=== PATIENT | female | born 2000 | race Caucasian/White ===

== ENCOUNTER 2018-08-29 19:27 | Emergency (ER) | payer SELFPAY ==
--- NOTE | 2018-08-29 19:38 | ER Document Report ---
ED Medical Screen (RME) - General Stated Complaint: MASS IN VAGINA Time Seen by Provider: 08/29/18 19:35 Mode of Arrival: Ambulatory Information source: Patient Notes: Patient is an otherwise healthy [id number]wr female who presents with chief complaint of a lump on her vagina. She also states that she has been having no period for at least 3 months now. She reports intermittent low abdominal pain and cramping. She also reports urinary frequency without dysuria. Patient denies any fevers.
[2018-08-29 19:42] VITALS: BP 122/67
[2018-08-29 20:39] LABS: APPEARANCE,URINE CLEAR; BILIRUBIN,URINE NEGATIVE (NEGATIVE); COLOR,URINE YELLOW; GLUCOSE, URINE NEGATIVE (NEGATIVE); KETONES,URINE NEGATIVE (NEGATIVE); LEUKOCYTE ESTERASE,URINE NEGATIVE (NEGATIVE); NITRITE,URINE NEGATIVE (NEGATIVE); PROTEIN,URINE NEGATIVE (NEGATIVE); URINE SPECIFIC GRAVITY 1.013; UROBILINOGEN,URINE NEGATIVE mg/dL (<2.0)
== END 2018-08-29 23:30 | disposition left against medical advice (07) ==
LOC: ER 19:27
DX: N89.9 Noninflammatory disorder of vagina, unspecified (principal); R35.0 Frequency of micturition; R10.30 Lower abdominal pain, unspecified; Z53.20 Procedure and treatment not carried out because of patient's decision for unspecified reasons
CPT/HCPCS: 81001; 81025; 99281

== ENCOUNTER 2019-07-04 00:15 | Emergency (ER) | payer OTHER ==
[2019-07-04 00:22] VITALS: BP 126/72
[2019-07-04 01:03] LABS: ABSOLUTE BASOPHILS # (AUTO) 0.1 10^3/uL (0.0-0.2); ABSOLUTE LYMPHOCYTES (AUTO) 1.1 10^3/uL (0.5-4.7); ABSOLUTE MONOCYTES (AUTO) 0.7 10^3/uL (0.1-1.4); ABSOLUTE NEUT (AUTO) 10.9 10^3/uL (1.7-8.2); BASOPHILS % (AUTO) 0.7 % (0-2); EOSINOPHILS % (AUTO) 0.4 % (0-6); HEMATOCRIT 41.5 % (36.0-47.0); HEMOGLOBIN 14.4 g/dL (12.0-15.5); LYMPHOCYTES % (AUTO) 8.4 % (13-45); MEAN CORPUSCULAR HEMOGLOBIN 29.8 pg (27.0-33.4); MEAN CORPUSCULAR HGB CONC 34.8 g/dL (32.0-36.0); MEAN CORPUSCULAR VOLUME 86 fl (80-97); MONOCYTES % (AUTO) 5.1 % (3-13); PLATELET COUNT 187 10^3/uL (150-450); RED BLOOD COUNT 4.84 10^6/uL (3.72-5.28); RED CELL DISTRIBUTION WIDTH 12.2 % (11.5-14.0); SEGMENTED NEUTROPHILS % (AUTO) 85.4 % (42-78); TOTAL CELLS COUNTED % (AUTO) 100 %; WHITE BLOOD COUNT 12.7 10^3/uL (4.0-10.5)
[2019-07-04 01:22] LABS: ALBUMIN 4.9 g/dL (3.5-5.0); ALKALINE PHOSPHATASE 68 U/L (38-126); ANION GAP 11 (5-19); ASPARTATE AMINO TRANSFERASE 21 U/L (14-36); BILIRUBIN,TOTAL 0.7 mg/dL (0.2-1.3); BLOOD UREA NITROGEN 22 mg/dL (7-20); CALCIUM 9.5 mg/dL (8.4-10.2); CARBON DIOXIDE 23 mmol/L (22-30); CHLORIDE 108 mmol/L (98-107); GLUCOSE 104 mg/dL (75-110); TOTAL PROTEIN 7.6 g/dL (6.3-8.2)
[2019-07-04 01:32] LABS: APPEARANCE,URINE SLIGHTLY-CLOUDY; BILIRUBIN,URINE NEGATIVE (NEGATIVE); COLOR,URINE YELLOW; GLUCOSE, URINE NEGATIVE (NEGATIVE); KETONES,URINE 20 mg/dL (NEGATIVE); LEUKOCYTE ESTERASE,URINE NEGATIVE (NEGATIVE); NITRITE,URINE NEGATIVE (NEGATIVE); PROTEIN,URINE 100 mg/dL (NEGATIVE); URINE SPECIFIC GRAVITY 1.033; UROBILINOGEN,URINE NEGATIVE mg/dL (<2.0)
[2019-07-04] MEDS ORDERED: ONDANSETRON 4 MG TAB.RAPDIS PO ONE (02:20)
[2019-07-04] MEDS ORDERED: NORMAL SALINE 1000 ML 1,000 ML IV ONE (04:45)
[2019-07-04] MEDS ORDERED: PROMETHAZINE HCL INJ 25 MG/1 ML VIAL IV ONE (04:45)
[2019-07-04] MEDS ORDERED: ONDANSETRON HCL INJ/PF 4 MG/2 ML SDV IV ONE (04:46)
--- NOTE | 2019-07-04 04:55 | ER Document Report ---
Entered by CAESAR HAMEED SCRIBE 07/04/19 0436 Acting as scribe for:SOCORRO LUNA IV, MD ED GI/ - General Chief Complaint: Nausea/Vomiting/Diarrhea Stated Complaint: VOMITING,ABDOMINAL PAIN Time Seen by Provider: 07/04/19 04:32 Mode of Arrival: Ambulatory Information source: Patient Notes: This 19 year old female patient presents to the ED today with complaints of severe nausea, vomiting, and diarrhea that began around 7:00PM last night after eating at [employer] at 1:00PM. Patient states that she ate snow crab at [employer] and that it tasted funny. Patient states that later that evening, her symptoms developed along with abdominal cramping. Patient was administered zofran in the ED, but patient states that it provided little to no relief. Patient notes that her also ate at [employer], but doesn't present with any symptoms. - Related Data Allergies/Adverse Reactions: No Known Allergies Allergy (Verified 07/04/19 00:33) Past Medical History - General Information source: Patient - Social History Smoking Status: Never Smoker Cigarette use (# per day): No Chew tobacco use (# tins/day): No Smoking Education Provided: No Lives with: Spouse/Significant other Family History: Reviewed & Not Pertinent Patient has suicidal ideation: No Patient has homicidal ideation: No Review of Systems - Review of Systems Constitutional: No symptoms reported EENT: No symptoms reported Cardiovascular: No symptoms reported Respiratory: No symptoms reported Gastrointestinal: See HPI, Abdominal pain, Diarrhea, Nausea, Vomiting Genitourinary: No symptoms reported Female Genitourinary: No symptoms reported Musculoskeletal: No symptoms reported Skin: No symptoms reported Hematologic/Lymphatic: No symptoms reported Neurological/Psychological: No symptoms reported -: Yes All other systems reviewed and negative Physical Exam - Vital signs Vitals: Temp Pulse Resp BP Pulse Ox 98.0 F 110 H 20 126/72 H 99 07/04/19 00:21 07/04/19 00:21 07/04/19 00:21 07/04/19 00:21 07/04/19 00:21 - General General appearance: Alert - HEENT Head: Normocephalic, Atraumatic Eyes: Normal Pupils: PERRL - Respiratory Respiratory status: No respiratory distress Chest status: Nontender Breath sounds: Normal Chest palpation: Normal - Cardiovascular Rhythm: Regular Heart sounds: Normal auscultation Murmur: No - Abdominal Inspection: Normal Distension: No distension Bowel sounds: Normal Tenderness: Nontender Organomegaly: No organomegaly - Back Back: Normal, Nontender - Extremities General upper extremity: Normal inspection General lower extremity: Normal inspection - Neurological Neuro grossly intact: Yes - Psychological Associated symptoms: Normal affect, Normal mood - Skin Skin Temperature: Warm Skin Moisture: Dry Skin Color: Normal Course - Vital Signs Vital signs: Temp Pulse Resp BP Pulse Ox 98.0 F 110 H 20 126/72 H 99 07/04/19 00:21 07/04/19 00:21 07/04/19 00:21 07/04/19 00:21 07/04/19 00:21 - Laboratory Result Diagrams: 07/04/19 00:48 07/04/19 00:48 Laboratory results interpreted by me: 07/04/19 07/04/19 07/04/19 00:48 00:48 00:48 WBC 12.7 H Lymph % (Auto) 8.4 L Absolute Neuts (auto) 10.9 H Seg Neutrophils % 85.4 H Chloride 108 H BUN 22 H Urine Protein 100 H Urine Ketones 20 H Discharge - Discharge Clinical Impression: Nausea vomiting and diarrhea Condition: Good Disposition: HOME, SELF-CARE Instructions: Antinausea Medication ([facility]) Additional Instructions: Return to the Emergency Department without delay if any worse. HOME CARE INSTRUCTIONS & INFORMATION: Thank you for choosing us for your medical needs. We hope you're satisfied with the care you received. After you leave, you must properly care for your problem and, at the same time, observe its progress. Any condition can change. Some illnesses can change rapidly over hours or days. If your condition worsens, return to the Emergency Department or see your physician promptly. ABOUT YOUR X-RAYS AND EKG'S: If you had an EKG or X-rays taken, they have been read by the Emergency Physician. The X-rays and EKG's will also be read by a Radiologist or Bundling Machine Operator within 24 hours. If discrepancies are noted, you will be notified by telephone. Please be certain the ED has a correct telephone number & address where you can be reached. Also, realize that some fractures or abnormalities do not show up on initial X-rays. If your symptoms continue, see your physician. ABOUT YOUR LABORATORY TEST: If you had laboratory tests, the results have been reviewed by the Emergency Physician. Some test results (for example cultures) may not be available for several days. You will be contacted if any test result shows you need additional treatment. Please be certain the ED has a correct telephone number and address where you can be reached. ABOUT YOUR MEDICATIONS: You will receive instructions on how to take your medicine on the prescription label you receive. Additional information may be provided by the Pharmacy. If you have questions afterwards, call the ED for clarification or further instructions. Some prescribed medications may cause drowsiness. Do not perform tasks such as driving a car or operating machinery without consulting your Pharmacist. If you feel you need a refill of pain medication, your condition will need re-evaluation. Please do not call for a refill of any medication. ABOUT YOUR SIGNATURE: Signature of this document acknowledges to followin. Understanding that you received emergency treatment and that you may be released before al medical problems are known or treated. Please be certain the ED has a correct phone number & address where you can be reached. 2. Acknowledgement that you will arrange for follow-up care as recommended. 3. Authorization for the Emergency Physician to provide information to your follow-up Physician in order to maximize your care. AT ANY TIME, IF YOUR SYMPTOMS CHANGE SIGNIFICANTLY OR WORSEN OR YOU DEVELOP NEW SYMPTOMS, RETURN TO THE EMERGENCY DEPARTMENT IMMEDIATELY FOR RE-EVALUATION. OUR GOAL IS TO PROVIDE EXCELLENT MEDICAL CARE! WE HOPE THAT WE HAVE MET YOUR EXPECTATIONS DURING YOUR EMERGENCY DEPARTMENT VISIT AND THAT YOU FEEL YOU HAVE RECEIVED EXCELLENT CARE! Prescriptions: Ondansetron [Zofran Odt 4 mg Tablet] 2 tab PO Q48HP PRN #20 tab.rapdis PRN Reason: For Nausea/Vomiting I personally performed the services described in the documentation, reviewed and edited the documentation which was dictated to the scribe in my presence, and it accurately records my words and actions.
== END 2019-07-04 06:22 | disposition home or self-care (01) ==
LOC: ER 00:15
DX: R11.2 Nausea with vomiting, unspecified (principal); R19.7 Diarrhea, unspecified; R10.9 Unspecified abdominal pain
CPT/HCPCS: 99284; 96361; 96374; 96375; 36415; 85025; 80053; 81001; S0119; J2550; J2405; J7030

== ENCOUNTER → 2020-01-14 | Outpatient (CLI) | payer OTHER ==
--- NOTE | 2020-01-14 13:59 | RADIOLOGY REPORT (SQ) ---
EXAM DESCRIPTION: U/S ABDOMEN LIMITED W/O DOP IMAGES COMPLETED DATE/TIME: 01/14/2020 11:01 am REASON FOR STUDY: RUQ PAIN (R10.11) R10.11 RIGHT UPPER QUADRANT PAIN Z34.82 ENCOUNTER FOR SUPRVSN OF NORMAL , SECOND TRI COMPARISON: None. TECHNIQUE: Dynamic and static grayscale images acquired of the abdomen and recorded on PACS. Additio nal selected color Doppler and spectral images recorded. LIMITATIONS: None. FINDINGS: PANCREAS: No masses. Visualized pancreatic duct normal caliber. LIVER: No masses. Echotexture normal. LIVER VASCULATURE: Normal directional flow of the main portal vein and hepatic veins. GALLBLADDER: No stones. Normal wall thickness. No pericholecystic fluid. ULTRASOUND-DETECTED SAAB'S SIGN: Negative. INTRAHEPATIC DUCTS AND COMMON DUCT: CBD and intrahepatic ducts normal caliber. No filling defects. INFERIOR VENA CAVA: Normal flow. AORTA: Normal as visualized. RIGHT KIDNEY: Normal size. Mildly dilated renal pelvis is within expected normative values for gest ational age. Normal echogenicity. No solid or suspicious masses. No calcifications. PERITONEAL AND RIGHT PLEURAL SPACE: No ascites or effusions. OTHER: There is a single live intrauterine gestation with heart motion documented on M-mode son ography of 144 beats per minute. IMPRESSION: Normal right upper quadrant ultrasound in the setting of a single live intrauterine gest ation. TECHNICAL DOCUMENTATION: JOB ID: [id number] 2010 [employer]- All Rights Reserved Reading location - IP/workstation name: [email or web address]
== END ==
LOC: RAD 09:49
PROVIDERS: ATTEND Obstetrics & Gynecology Gynecology
DX: O26.892 Other specified pregnancy related conditions, second trimester (principal); R10.11 Right upper quadrant pain
CPT/HCPCS: 76705

== ENCOUNTER 2020-02-27 21:04 | Outpatient (CLI) | payer OTHER ==
[2020-02-27 21:47] LABS: APPEARANCE,URINE CLEAR; BILIRUBIN,URINE NEGATIVE (NEGATIVE); COLOR,URINE STRAW; GLUCOSE, URINE NEGATIVE (NEGATIVE); KETONES,URINE NEGATIVE (NEGATIVE); LEUKOCYTE ESTERASE,URINE NEGATIVE (NEGATIVE); NITRITE,URINE NEGATIVE (NEGATIVE); PROTEIN,URINE NEGATIVE (NEGATIVE); URINE SPECIFIC GRAVITY 1.005; UROBILINOGEN,URINE NEGATIVE mg/dL (<2.0)
[2020-02-27 22:04] LABS: BACTERIA (WET MOUNT) 4+ BACTERIA SEEN; EPITHELIALS (WET MOUNT) 4+ EPITHELIALS SEEN; RBCS (WET MOUNT) FEW RBCS SEEN; T.VAGINALIS (WET MOUNT) NO TRICHOMONAS SEEN; WBCS (WET MOUNT) 3+ WBCS SEEN; YEAST (WET MOUNT) BUDDING YEAST SEEN
[2020-02-27 22:09] LABS: URINE AMPHETAMINES SCREEN NEGATIVE; URINE BARBITURATES SCREEN NEGATIVE; URINE BENZODIAZEPINES SCREEN NEGATIVE; URINE COCAINE SCREEN NEGATIVE; URINE MARIJUANA (THC) SCREEN NEGATIVE; URINE METHADONE SCREEN NEGATIVE; URINE PHENCYCLIDINE SCREEN NEGATIVE
--- NOTE | 2020-02-27 22:43 | RADIOLOGY REPORT (SQ) ---
EXAM DESCRIPTION: US LIMITED COMPLETED DATE/TME: 02/27/2020 21:33 CLINICAL HISTORY: 19 years, Female, cervical length 24+2 vaginal pain COMPARISON: None. TECHNIQUE: Limited OB ultrasound LIMITATIONS: None. FINDINGS: Single, live intrauterine gestation in the cephalic presentation. Cervical length 2.7 cm. Amniotic fluid index 11.5 cm. Heart tones obtained 132 bpm. The placenta is posterior in location with a grade 1 echotexture and no evidence for previa. Current ultrasound age is 23 weeks 6 days Ratios: HC to a.c.: 1.10 FL to BPD: 79.4 FL to HC: 20.3 FL to a.c.: 22.3. A detailed anatomic assessment was not performed at this time IMPRESSION: Single, live IUP as above. Continued nonemergent follow-up recommended copyright 2010 [employer]- All Rights Reserved
[2020-02-27 23:32] LABS: CHLAM PCR NOT DETECTED (NOT DETECT)
== END 2020-02-28 00:08 | disposition home or self-care (01) ==
LOC: LC 21:04
PROVIDERS: ATTEND Obstetrics & Gynecology
DX: O47.02 False labor before 37 completed weeks of gestation, second trimester (principal); Z3A.24 24 weeks gestation of pregnancy
CPT/HCPCS: 76815; 80307; 81001; 87210; 87491; 87591

== ENCOUNTER 2020-06-15 14:11 | Inpatient (IN) | payer OTHER ==
[2020-06-15] MEDS ORDERED: RINGERS SOLUTION,LACTATED 1,000 ML IV ONE (14:22)
[2020-06-15] MEDS ORDERED: RINGERS SOLUTION,LACTATED 1,000 ML IV PRN (14:22)
--- NOTE | 2020-06-15 14:28 | Admission Physical ---
Datetime Report Generated by CPN: 06/15/2020 14:28 CURRENT ADMISSION Hx Assessment: The History has been Reviewed and is Current Chief Complaint: Uterine Contractions Chief Complaint Other: @ 39.6 wks EGA admitted in active labor from the office Contractions Q 5 min and cervix 4-5/80/-1 on check there by Radha LUONG Admit Impression : Term, Intrauterine ; Active Labor Admit Plan: Admit to Unit; Initiate Labor Protocol ALLERGIES Medication Allergies: No Medication Allergies: No Known Allergies (02/27/2020) Latex: No Latex Allergies OBSTETRICAL HISTORY EDC: 06/16/2020 00:00 : 2 Para: 1 Term: 1 : 0 SAB: 0 IAB: 0 Ectopic: 0 Livin Cesareans: 0 VBACs: 0 Multiple Births: 0 Obstetrical History Comments: G1: 2018, 7lbs 2 oz vag male G2: current MEDICAL HISTORY Medical History Comments: anemia, childbirth PHYSICAL EXAM General: Normal HEENT: Normal Neurologic: Normal Thyroid: Normal Heart: Normal Lungs: Normal Breast: Normal Back: Normal Abdomen: Normal Genitourinary Exam: Normal Extremities: Normal DTRs: Normal Pelvic Type: Adequate Vital Signs: Reviewed; Within Normal Limits VAGINAL EXAM Dilatation: 5 Effacement: 80 Station: -1 Contraction Comments: Q 5 minutes MEMBRANES Membranes: Intact FETUS A EGA: 39.6 Monitoring: External US FHR- Baseline: 135 Variability: Moderate 6-25bpm Accelerations: 15X15 Decelerations: None FHR Category: Category I Admit Comment: at 39.6 wks EGA in active labor -Admit to LDR -NPO and IVFs: LR at 125 cc/hr after 1 liter bolus LR -CEFM and toco -GBS negative -hx of one prior , anticipate INFORMED CONSENT Informed Consent Obtained: Vaginal Delivery; Section Delivery; Risks, Benefits and Alternatives Discussed Signature: with User ID: Luis Angel : with User ID: Luis Angel
[2020-06-15] MEDS ORDERED: OXYTOCIN 10 UNIT/ML VIAL ONE (14:33)
[2020-06-15] MEDS ORDERED: MISOPROSTOL 0.2 MG TABLET ONE (14:33)
[2020-06-15] MEDS ORDERED: LIDOCAINE 1% INJ-PF (10 MG/ML) 30 ML SDV ONE (14:33)
[2020-06-15] MEDS ORDERED: OXYTOCIN/0.9 % SODIUM CHLORIDE 30 UNIT/500 ML RTUINJ ONE (14:33)
[2020-06-15 15:14] LABS: ABSOLUTE BASOPHILS # (AUTO) 0.1 10^3/uL (0.0-0.2); ABSOLUTE LYMPHOCYTES (AUTO) 1.6 10^3/uL (0.5-4.7); ABSOLUTE MONOCYTES (AUTO) 0.8 10^3/uL (0.1-1.4); ABSOLUTE NEUT (AUTO) 9.5 10^3/uL (1.7-8.2); BASOPHILS % (AUTO) 0.7 % (0-2); EOSINOPHILS % (AUTO) 0.1 % (0-6); HEMATOCRIT 34.8 % (36.0-47.0); HEMOGLOBIN 11.8 g/dL (12.0-15.5); LYMPHOCYTES % (AUTO) 13.6 % (13-45); MEAN CORPUSCULAR HEMOGLOBIN 28.3 pg (27.0-33.4); MEAN CORPUSCULAR VOLUME 83 fl (80-97); MONOCYTES % (AUTO) 6.4 % (3-13); PLATELET COUNT 129 10^3/uL (150-450); RED BLOOD COUNT 4.19 10^6/uL (3.72-5.28); RED CELL DISTRIBUTION WIDTH 15.3 % (11.5-14.0); SEGMENTED NEUTROPHILS % (AUTO) 79.2 % (42-78); TOTAL CELLS COUNTED % (AUTO) 100 %
[2020-06-15 15:45] LABS: APPEARANCE,URINE CLEAR; BILIRUBIN,URINE NEGATIVE (NEGATIVE); COLOR,URINE YELLOW; GLUCOSE, URINE NEGATIVE (NEGATIVE); KETONES,URINE NEGATIVE (NEGATIVE); LEUKOCYTE ESTERASE,URINE NEGATIVE (NEGATIVE); NITRITE,URINE NEGATIVE (NEGATIVE); PROTEIN,URINE NEGATIVE (NEGATIVE); URINE SPECIFIC GRAVITY 1.017; UROBILINOGEN,URINE NEGATIVE mg/dL (<2.0)
[2020-06-15 17:22] LABS: URINE AMPHETAMINES SCREEN NEGATIVE; URINE BARBITURATES SCREEN NEGATIVE; URINE BENZODIAZEPINES SCREEN NEGATIVE; URINE COCAINE SCREEN NEGATIVE; URINE MARIJUANA (THC) SCREEN NEGATIVE; URINE METHADONE SCREEN NEGATIVE; URINE PHENCYCLIDINE SCREEN NEGATIVE
[2020-06-15] MEDS ORDERED: FENTANYL/BUPIVACAINE/NS/PF 0 MCG/0 ML RTUINJ EPI ONE (19:50)
[2020-06-15] MEDS ORDERED: ROPIVACAINE HCL 0.2% INJ/PF (2 MG/ML) 20 ML SDV ONE (19:50)
[2020-06-15] MEDS ORDERED: EPHEDRINE SULFATE INJ 50 MG/1 ML AMPULE ONE (19:50)
[2020-06-15] MEDS ORDERED: BENZOCAINE/MENTHOL AEROSOL SPRAY 56 ML TOP PRN (20:37)
[2020-06-15] MEDS ORDERED: MAG HYDROX/AL HYDROX/SIMETH SUSP 30 ML UDCUP PO PRN (20:37)
[2020-06-15] MEDS ORDERED: ACETAMINOPHEN 325 MG TABLET PO PRN (20:37)
[2020-06-15] MEDS ORDERED: DIBUCAINE 1% OINTMENT 28 GM TP PRN (20:37)
[2020-06-15] MEDS ORDERED: MEASLES,MUMPS&RUBELLA VACC/PF 0.5 ML VIAL SUBCUT PRN (20:37)
[2020-06-15] MEDS ORDERED: FAMOTIDINE 20 MG TABLET PO PRN (20:37)
[2020-06-15] MEDS ORDERED: VARICELLA VACC/PF (1350 UNIT/0.5 ML) 0.5 ML VIAL SUBCUT PRN (20:37)
[2020-06-15] MEDS ORDERED: GLYCERIN/WITCH HAZEL LEAF 1 EACH MED..WIPE TP PRN (20:37)
[2020-06-15] MEDS ORDERED: ACETAMINOPHEN 650 MG SUPP.RECT PR PRN (20:37)
[2020-06-15] MEDS ORDERED: DIPH/PERTUSS(ACELL)/TETANUS VAC/PF 0.5 ML SYR (>=10YO) IM PRN (20:37)
[2020-06-15] MEDS ORDERED: OXYTOCIN/0.9 % SODIUM CHLORIDE 30 UNIT/500 ML RTUINJ IV PRN (20:37)
[2020-06-15] MEDS ORDERED: ZOLPIDEM TARTRATE 5 MG TABLET PO PRN (20:37)
[2020-06-15] MEDS ORDERED: DIPHENHYDRAMINE HCL 25 MG CAPSULE PO PRN (20:37)
[2020-06-15] MEDS ORDERED: ACETAMINOPHEN WITH CODEINE #3 TABLET PO PRN ×2 (20:37)
[2020-06-15] MEDS ORDERED: MAGNESIUM HYDROXIDE SUSP 30 ML UDCUP PO PRN (20:37)
[2020-06-15] MEDS ORDERED: PSEUDOEPHEDRINE HCL 30 MG TABLET PO PRN (20:37)
[2020-06-15] MEDS ORDERED: IBUPROFEN 800 MG TABLET ONE (20:51)
[2020-06-15] MEDS ORDERED: METHYLERGONOVINE MALEATE 0.2 MG TABLET ONE (22:22)
[2020-06-15] MEDS: IBUPROFEN 800 MG TABLET PO SCH (22:24)
--- NOTE | 2020-06-15 22:38 | Birth Certificate Data ---
Cert Data Datetime Report Generated by CPN: 06/15/2020 22:37 CERTIFICATE DATA Delivery Provider: Magnolia Blanco MD (02/27/2020 21:23:Magnolia Blanco MD) 47a. Care: Yes (02/27/2020 21:23:Steph Tolentino RN) 47b. Date of First Visit: 12/21/2019 00:00 (02/27/2020 21:23:Steph Tolentino RN) 47c. Date of Last Visit: 06/15/2020 00:00 (02/27/2020 21:23:Steph Tolentino RN) 47d. Number of Visits: 11 (02/27/2020 21:23:Steph Tolentino RN) 48a. Number of Prev Live Births: 1 (02/27/2020 21:23:Steph Tolentino RN) 48b. Now Livin (02/27/2020 21:23:Steph Tolentino RN) 48c. Live Births Now : 0 (02/27/2020 21:23:QS system process) 48d. Date of Last Live : 01/21/2018 00:00 (02/27/2020 21:23:Steph Tolentino RN) RISK FACTORS IN THIS 49a. Diabetes: No (02/27/2020 21:23:Shira Luna RN) 49b. Hypertension: No (02/27/2020 21:23:Shira Luna RN) 49c. Previous Births: 0 (02/27/2020 21:23:Steph Tolentino RN) 49d. Stillborns: No (02/27/2020 21:23:Shira Luna RN) 49d. IUGR: No (02/27/2020 21:23:Shira Luna RN) 49e. Infertility Treatment: No (02/27/2020 21:23:Shira Luna RN) 49f. Previous Cesareans: 0 (02/27/2020 21:23:Steph Tolentino RN) Mother's Height 50b. Height Inches: 61 (02/27/2020 21:27:QS system process) Mother's Weight 51a. Pre- Weight (lbs): 129 (02/27/2020 21:23:Steph Tolentino RN) 51b. Weight at Delivery (lbs): 134 (02/27/2020 21:27:QS system process) 52. Dt Last Normal Menses Began: 09/12/2019 00:00 (02/27/2020 21:23:Shira Luna RN) Infections Present/Treated 53a. Gonorrhea: No (02/27/2020 21:23:Steph Tolentino RN) Results this Hospital Visit : Negative (02/27/2020 21:23:Steph Tolentino RN) 53b. Syphilis: No (02/27/2020 21:23:Steph Tolentino RN) 53c. Chlamydia: No (02/27/2020 21:23:Steph Tolentino RN) Results this Hospital Visit: Negative (02/27/2020 21:23:Steph Tolentino RN) 53d. Hepatitis B: No (02/27/2020 21:23:Steph Tolentino RN) Results this Hospital Visit: Negative (02/27/2020 21:23:Shira Luna RN) 53e. Hepatitis C: Negative (02/27/2020:23:Shira Luna RN) 53h. Mother Tested for HBsAG: Yes (02/27/2020 21:23:Shira Luna RN) 53i. Date Tested: 11/09/2020 00:00 (02/27/2020:23:Shira Luna RN) 53j. Test Result: Negative (02/27/2020:23:Shira Luna RN) Obstetric Procedures 54a, b, c. Obstetric Procedures: Ultrasound; NST (02/27/2020:23:Shira Luna RN) Cigarette Smoking Cigarette Smoking: Never Smoker. [id number] (02/27/2020 21:23:Shira Luna RN) Onset of Labor 56a. PROM >12 Hrs: 0.17 (02/27/2020 21:23:QS system process) 56b. Precipitous Labor <3 Hrs: 3 (02/27/2020 21:23:QS system process) 56c. Prolonged Labor > 20 Hrs: 3 (02/27/2020 21:23:QS system process) 57a. Induction of Labor: N/A (02/27/2020 21:23:Noreen Butler RN) 57c. Non-Vertex Presentation A: Vertex (02/27/2020 21:23:Noreen Butler RN) 57d. Steroids - Lung Mat: None (02/27/2020 21:23:Noreen Butler RN) 57d. Steroids - Lung Mat: Not Applicable (02/27/2020 21:23:Noreen Butler RN) 57f. Mat [place] or Temp >100.4: 97.9 (02/27/2020 21:23:Noreen Butler RN) 57g. Moderate/Heavy Meconium: Clear (06/15/2020 20:08:Julien Garcia RN) 57h. Intolerance of Labor: N/A (02/27/2020 21:23:Julien Garcia RN) : N/A (02/27/2020 21:23:Julien Garcia RN) 57i. Epidural/Spinal Anesthesia: None (02/27/2020 21:23:Noreen Butler RN) Method of Delivery 58a. Forceps - Unsuccessful A: N/A (02/27/2020 21:23:Noreen Butler RN) 58b. Vacuum - Unsuccessful A: N/A (02/27/2020 21:23:Noreen Butler RN) 58c. Presentation at 58c. Presentation at - A : Vertex (02/27/2020 21:23:Noreen Butler RN) 58c. Presentation at - A : N/A (02/27/2020 21:23:Noreen Butler RN) 58c. Presentation at - A : Cephalic (02/27/2020 21:23:Noreen Butler RN) Final Route and Method of Del 58d. Baby A Route/Delivery: Vaginal (02/27/2020 21:23:Noreen Butler RN) 58e. Trial of Labor Attempted: No (02/27/2020 21:23:Noreen Butler RN) 58e. Trial of Labor Attempted A: N/A (02/27/2020 21:23:Noreen Butler RN) 58e. Trial of Labor Attempted B: N/A (02/27/2020 21:23:Noreen Butler RN) Maternal Morbidity 59b. 3rd or 4th Degree Lacs: Perineal (02/27/2020 21:23:Magnolia Blanco, MD) Birthweight Baby A: 3420 (02/27/2020 21:23:Julien Garcia RN) 60a. Pounds : 7 (02/27/2020 21:23:QS system process) 60b. Ounces: 9 (02/27/2020 21:23:QS system process) 61. GA at Delivery Baby A: 39.6 (02/27/2020 21:23:Noreen Butler RN) : Full Term- 39- 40.6 Weeks (02/27/2020 21:23:QS system process) 62a. 5 Minute Baby A: 9 (02/27/2020 21:23:QS system process)
--- NOTE | 2020-06-15 22:38 | Delivery Summary ---
Del Sum A-C Datetime Report Generated by CPN: 06/15/2020 22:37 DELIVERY PERSONNEL DELIVERY PERSONNEL: [id number] Delivery Doctor:: Magnolia Blanco MD Labor and Delivery Nurse:: Julien Garcia RNradio interference investigator Nurse:: Noreen Butler RN Stock Room Manager/ALUMINUM BOAT ASSEMBLY SUPERVISOR: Marlen Ross, ST MATERNAL INFORMATION Delivery Anesthesia: None Medications After Delivery: Pitocin 10 Units IM Delivery QBL: 100 Maternal Complications: None Provider Comments: Called to patients room as she was complete and +2 station. Pushed through a few contractions then delivered a viable male . After delivery of the head, the shoulders and rest of the body followed easily. The baby was vigorous and cord clamping was delayed for 30 seconds. After cord doubly clamped and cut, placed skin to skin. Both Mother and infant stable. Fundus firm. LABOR SUMMARY EDC: 06/16/2020 00:00 No. Babies in Womb: 1 Attempted: No Labor Anesthesia: None LABOR INFORMATION Reason for Induction: Not Applicable Onset of Labor: 06/15/2020 17:19 Complete Dilatation: 06/15/2020 20:11 Oxytocin: N/A Group B Beta Strep: negative Antibiotics # of Doses: 0 Name of Antibiotic Given: n/a Steroids Given: None Reason Steroids Not Administered: Not Applicable MEMBRANES Membranes Rupture Method: Spontaneous Rupture of Membranes: 06/15/2020 20:08 Length of Rupture (hr): 0.17 Amniotic Fluid Color: Clear Amniotic Fluid Amount: Moderate Amniotic Fluid Odor: Normal STAGES OF LABOR Stage 1 hr: 2 Stage 1 min: 52 Stage 2 hr: 0 Stage 2 min: 7 Stage 3 hr: 0 Stage 3 min: 4 Total Time in Labor hr: 3 Total Time in Labor min: 3 VAGINAL DELIVERY Episiotomy: None Laceration #1: Perineal Laceration Extension #1: Second Degree Laceration Repair: Yes Laceration Repair Note: Repaired with 2-[address] needle. She had a hymen remenant that was prominent with a small 4-5 mm cyst just posterior to it that she originally wanted excised but since she went natural she was afraid to have it removed, even after getting lidocaine for anesthesia in the area Sponge Count Correct: Yes Sharps Count Correct: Yes CSECTION DELIVERY Primary Indication: N/A Secondary Indication: N/A CSection Incidence: N/A Labor: N/A Elective: N/A CSection Incision: N/A BABY A INFORMATION Infant Delivery Date/Time: 06/15/2020 20:18 Method of Delivery: Vaginal Nurse Controlled Delivery: No Born in Route : No : N/A Forceps: N/A Vacuum Extraction: N/A Shoulder Dystocia : No PRESENTATION/POSITION BABY A Presentation: Cephalic Cephalic Presentation: Vertex Vertex Position: Left Occipital Anterior Breech Presentation: N/A PLACENTA INFORMATION BABY A Placenta Delivery Time : 06/15/2020 20:22 Placenta Method of Delivery: Spontaneous Placenta Status: Delivered SCORES BABY A Heart Rate 1 min: >100 bpm Resp Effort 1 min: Good Cry Reflex Irritability 1 min: Cough or Sneeze or Pulls Away Muscle Tone 1 min: Active Motion Color 1 min: Body [place], Extremities Blue Resuscitation Effort 1 min: Tactile Stimulation SCORE 1 MIN: 9 Heart Rate 5 min: >100 bpm Resp Effort 5 min: Good Cry Reflex Irritability 5 min: Cough or Sneeze or Pulls Away Muscle Tone 5 min: Active Motion Color 5 min: Body [place], Extremities Blue Resuscitation Effort 5 min: Tactile Stimulation SCORE 5 MIN: 9 INFORMATION BABY A Gestational Age at Delivery: 39.6 Gestational Status: Full Term- 39- 40.6 Weeks Outcome : Liveborn Condition : Stable Infant Sex: Male IDENTIFICATION BABY A Verification Date/Time: 06/15/2020 21:20 ID Band Number: [id number] Mother's Name Verified: Yes Infant RN Verifying Infant: Souleymane Garcia, ARGELIA Additional Verifying Personnel: Elsie Palacio RN WEIGHT/LENGTH BABY A Infant Birthweight (gm): 3420 Infant Weight (lb): 7 Weight (oz): 9 Infant Length (in): 19.00 Infant Length (cm): 48.26 CORD INFORMATION BABY A No. Cord Vessels: 3 Nuchal Cord : N/A Cord Blood Taken: Yes-For Eval (Mom's Blood Type - or O+) Infant Suction: None ASSESSMENT BABY A Infant Complications: None Physical Findings at Delivery: Bruising Infant Respirations: Appears Normal Skin to Skin: Yes Skin to Skin Time (min): 60 Yoker Machine Operator/ALS Called : No Care By: RJulia Butler, RN Transferred To: Remains with Mother BABY B INFORMATION : N/A SIGNATURES Signature: with User ID: Luis Angel : with User ID: Luis Angel
--- NOTE | 2020-06-15 22:38 | Warning Signs in Babies ---
VOD Warning Signs Datetime Report Generated by [facility]: 06/15/2020 22:37 VOD#608 -Warning Signs in Babies: Needs to be viewed. (02/27/2020 21:23:Julien Garcia RN)
[2020-06-16] MEDS: METHYLERGONOVINE MALEATE 0.2 MG TABLET PO SCH ×4 (05:26→17:57)
[2020-06-16] MEDS: IBUPROFEN 800 MG TABLET PO SCH ×3 (06:22→22:50)
[2020-06-16 08:38] LABS: HEMATOCRIT 32.6 % (36.0-47.0); HEMOGLOBIN 11.4 g/dL (12.0-15.5); MEAN CORPUSCULAR HEMOGLOBIN 29.2 pg (27.0-33.4); MEAN CORPUSCULAR VOLUME 83 fl (80-97); PLATELET COUNT 105 10^3/uL (150-450); RED BLOOD COUNT 3.91 10^6/uL (3.72-5.28); RED CELL DISTRIBUTION WIDTH 15.5 % (11.5-14.0); WHITE BLOOD COUNT 14.3 10^3/uL (4.0-10.5)
[2020-06-16] MEDS: SENNOSIDES/DOCUSATE 8.6-50 MG 1 EACH TABLET PO SCH (10:11)
[2020-06-16] MEDS: DOCUSATE SODIUM 100 MG CAPSULE PO SCH ×2 (10:11→17:57)
[2020-06-16] MEDS: PRENATAL VITAMIN W DHA CAPSULE PO SCH (10:11)
[2020-06-16] MEDS: FERROUS SULFATE 325 MG TABLET PO SCH ×2 (10:11→18:39)
--- NOTE | 2020-06-16 10:27 | PDOC PROGRESS REPORT ---
Subjective Date:: 06/16/20 Subjective:: She reports doing well. Questions answered about circumcision. Reason For Visit: Physical Exam - Physical Exam Vital Signs: Temp Pulse Resp BP Pulse Ox 97.5 F 67 18 97/64 L 96 06/16/20 09:15 06/16/20 07:27 06/16/20 07:27 06/16/20 07:27 06/16/20 07:27 General appearance: PRESENT: no acute distress, well-developed, well-nourished Pulses: PRESENT: normal dorsalis pedis pul, +2 pedal pulses bilateral Vascular exam: PRESENT: normal capillary refill Result Laboratory Results: 06/16/20 08:07 06/15/20 06/15/20 06/15/20 14:45 14:59 14:59 WBC 12.0 H RBC 4.19 Hgb 11.8 L Hct 34.8 L MCV 83 MCH 28.3 MCHC 34.0 RDW 15.3 H Plt Count 129 L Seg Neutrophils % 79.2 H Urine Color YELLOW Urine Appearance CLEAR Urine pH 7.0 Ur Specific [place] 1.017 Urine Protein NEGATIVE Urine Glucose (UA) NEGATIVE Urine Ketones NEGATIVE Urine Blood NEGATIVE Urine Nitrite NEGATIVE Ur Leukocyte Esterase NEGATIVE Blood Type O NEGATIVE Antibody Screen POSITIVE 06/16/20 08:07 WBC 14.3 H RBC 3.91 Hgb 11.4 L Hct 32.6 L MCV 83 MCH 29.2 MCHC 35.0 RDW 15.5 H Plt Count 105 L Seg Neutrophils % Urine Color Urine Appearance Urine pH Ur Specific [place] Urine Protein Urine Glucose (UA) Urine Ketones Urine Blood Urine Nitrite Ur Leukocyte Esterase Blood Type Antibody Screen Impressions: Doing well ppd#1 Assessment & Plan - Diagnosis (1) Vaginal delivery Is this a current diagnosis for this admission?: Yes - Time Time Spent with patient: 15-24 minutes Medications reviewed and adjusted accordingly: Yes Anticipated discharge: Home Anticipated DC Timeframe: within 24 hours
[2020-06-16] MEDS ORDERED: ONDANSETRON 4 MG TAB.RAPDIS PO PRN (17:46)
[2020-06-16] MEDS ORDERED: ONDANSETRON 4 MG TAB.RAPDIS ONE (17:47)
[2020-06-17] MEDS: METHYLERGONOVINE MALEATE 0.2 MG TABLET PO SCH ×2 (00:25→05:46)
[2020-06-17] MEDS: IBUPROFEN 800 MG TABLET PO SCH ×2 (05:46→13:43)
[2020-06-17] MEDS: PRENATAL VITAMIN W DHA CAPSULE PO SCH (10:36)
[2020-06-17] MEDS: DOCUSATE SODIUM 100 MG CAPSULE PO SCH (10:36)
[2020-06-17] MEDS: SENNOSIDES/DOCUSATE 8.6-50 MG 1 EACH TABLET PO SCH (10:36)
[2020-06-17] MEDS: FERROUS SULFATE 325 MG TABLET PO SCH (10:36)
[2020-06-17 12:00] VITALS: BP 106/55
--- NOTE | 2020-06-17 12:22 | PDOC DISCHARGE SUMMARY ---
Impression - Admit/DC Date/PCP Admission Date/Primary Care Provider: 06/15/20 14:11 Discharge Date: 06/17/20 - Discharge Diagnosis (1) Spontaneous onset of labor Is this a current diagnosis for this admission?: Yes (2) Vaginal delivery Is this a current diagnosis for this admission?: Yes - Additional Information Discharge Diet: Regular Discharge Activity: Balance Activity w/Rest, Pelvic Rest Prescriptions: Ibuprofen [Motrin 800 mg Tablet] 800 mg PO Q8HP PRN #60 tablet PRN Reason: Home Medications: Ibuprofen [Motrin 800 mg Tablet] 800 mg PO Q8HP PRN #60 tablet 06/17/20 Hospital Course 59. Maternal Morbidity (serious complications experinced by the mother associated with labor and delivery: None of the above Results Laboratory Results: WBC 14.3 10^3/uL (4.0-10.5) H 06/16/20 08:07 RBC 3.91 10^6/uL (3.72-5.28) 06/16/20 08:07 Hgb 11.4 g/dL (12.0-15.5) L 06/16/20 08:07 Hct 32.6 % (36.0-47.0) L 06/16/20 08:07 MCV 83 fl (80-97) 06/16/20 08:07 MCH 29.2 pg (27.0-33.4) 06/16/20 08:07 MCHC 35.0 g/dL (32.0-36.0) 06/16/20 08:07 RDW 15.5 % (11.5-14.0) H 06/16/20 08:07 Plt Count 105 10^3/uL (150-450) L 06/16/20 08:07 Lymph % (Auto) 13.6 % (13-45) 06/15/20 14:59 [place] % (Auto) 6.4 % (3-13) 06/15/20 14:59 Eos % (Auto) 0.1 % (0-6) 06/15/20 14:59 Baso % (Auto) 0.7 % (0-2) 06/15/20 14:59 Absolute Neuts (auto) 9.5 10^3/uL (1.7-8.2) H 06/15/20 14:59 Absolute Lymphs (auto) 1.6 10^3/uL (0.5-4.7) 06/15/20 14:59 Absolute Monos (auto) 0.8 10^3/uL (0.1-1.4) 06/15/20 14:59 Absolute Eos (auto) 0.0 10^3/uL (0.0-0.6) 06/15/20 14:59 Absolute Basos (auto) 0.1 10^3/uL (0.0-0.2) 06/15/20 14:59 Seg Neutrophils % 79.2 % (42-78) H 06/15/20 14:59 Urine Color YELLOW 06/15/20 14:45 Urine Appearance CLEAR 06/15/20 14:45 Urine pH 7.0 (5.0-9.0) 06/15/20 14:45 Ur Specific [place] 1.017 06/15/20 14:45 Urine Protein NEGATIVE mg/dL (NEGATIVE) 06/15/20 14:45 Urine Glucose (UA) NEGATIVE mg/dL (NEGATIVE) 06/15/20 14:45 Urine Ketones NEGATIVE mg/dL (NEGATIVE) 06/15/20 14:45 Urine Blood NEGATIVE (NEGATIVE) 06/15/20 14:45 Urine Nitrite NEGATIVE (NEGATIVE) 06/15/20 14:45 Urine Bilirubin NEGATIVE (NEGATIVE) 06/15/20 14:45 Urine Urobilinogen NEGATIVE mg/dL (<2.0) 06/15/20 14:45 Ur Leukocyte Esterase NEGATIVE (NEGATIVE) 06/15/20 14:45 Urine Ascorbic Acid 20 (NEGATIVE) H 06/15/20 14:45 Urine Opiates Screen NEGATIVE 06/15/20 14:45 Urine Methadone Screen NEGATIVE 06/15/20 14:45 Ur Barbiturates Screen NEGATIVE 06/15/20 14:45 Ur Phencyclidine Scrn NEGATIVE 06/15/20 14:45 Ur Amphetamines Screen NEGATIVE 06/15/20 14:45 U Benzodiazepines Scrn NEGATIVE 06/15/20 14:45 Urine Cocaine Screen NEGATIVE 06/15/20 14:45 U Marijuana (THC) Screen NEGATIVE 06/15/20 14:45 RPR NONREACTIVE (NONREACTIVE) 06/15/20 14:59 Blood Type O NEGATIVE 06/15/20 14:59 Antibody Screen POSITIVE 06/15/20 14:59 Antibody Identification RHOGAM INDUCED ANTI-D 06/15/20 14:59 Plan Plan of Treatment: follow up in 4 weeks at [facility] for post check
== END 2020-06-17 15:35 | disposition home or self-care (01) | DRG 807 ==
LOC: LR 14:11 → 2S 23:15
PROVIDERS: ADMIT Obstetrics & Gynecology; ATTEND Obstetrics & Gynecology
PROC: 10E0XZZ Delivery of Products of Conception, External Approach (ICD-10-PCS; principal; 2020-06-15)
PROC: 0KQM0ZZ Repair Perineum Muscle, Open Approach (ICD-10-PCS; 2020-06-15)
DX: O70.1 Second degree perineal laceration during delivery (principal); Z37.0 Single live birth; Z20.822 Contact with and (suspected) exposure to COVID-19; Z28.21 Immunization not carried out because of patient refusal; Z3A.39 39 weeks gestation of pregnancy
CPT/HCPCS: 36415; 80307; 81005; 85025; 85027; 86592; 86850; 86870; 86900; 86901; J2590; J2795; J3010; J3490; S0119